=== PATIENT | female | born 1990 | race Caucasian/White ===

== ENCOUNTER 2017-05-20 20:26 | Emergency (ER) | payer OTHER ==
[~2017-05-20] VITALS: Ht 177.8 cm; Wt 79.3 kg
[2017-05-20] MEDS ORDERED: PREN27TA3 PO (20:34)
[2017-05-20 20:58] LABS: BASO % 0.1 % (0.0-1.0); EOS # 0.1 K/mm3 (0.0-0.50); EOS % 1.2 % (0.0-3.0); LARGE UNSTAINED CELL # 0.1 K/mm3 (0.0-0.4); LARGE UNSTAINED CELL % 1.4 % (0.0-4.0); LYMPH # 1.6 K/mm3 (1.5-6.5); LYMPH % 29.2 % (24.0-44.0); MEAN CORPUSCULAR HEMOGLOBIN 28.7 pg (27.0-33.0); MEAN CORPUSCULAR HGB CONC 33.3 g/dl (32.0-36.5); MEAN CORPUSCULAR VOLUME 86.2 fl (80.0-96.0); MONO # 0.3 K/mm3 (0.0-0.8); MONO % 6.1 % (0.0-5.0); NEUTROPHILS # 3.3 K/mm3 (1.8-7.7); NEUTROPHILS % 61.9 % (36.0-66.0); PLATELET COUNT, AUTOMATED 207 k/mm3 (150-450); RED CELL DISTRIBUTION WIDTH 12.9 % (11.5-14.5); WHITE BLOOD COUNT 5.3 K/mm3 (4.0-10.0)
[2017-05-20 21:16] LABS: CALCIUM OXALATE CRYSTALS SMALL
--- NOTE | 2017-05-20 21:40 | REPUSA ---
Clinical history: vaginal bleeding. Comparison: none. Findings: Real-time transabdominal and transvaginal ultrasound images of the pelvis were obtained. An anteverted uterus is noted, measuring 9.2 x 4.3 x 6.3 cm. The uterus demonstrates normal echotexture and echogenicity. The endometrial stripe measures 3 mm and is within normal limits. The right ovary measures 3.2 x 2.3 x 3.1 cm. There is a complex right ovarian cyst measuring 1.5 x 1.3 x 1.4 cm. The left ovary measures 3.5 x 2.3 x 2.6 cm. No adnexal masses are seen. Color Doppler flow is seen within both ovaries. There is no evidence of free fluid. Impression: 1. No evidence of it intrauterine at this time. Differential diagnosis includes early pregn litzy, missed , or ectopic . Follow-up with serial serum hCG levels is recommended. 2. Hemorrhagic right ovarian cyst.
[2017-05-20] MEDS ORDERED: metroNIDAZOLE (FLAGYL) 250 MG TAB As Ordered ONE (21:55)
[2017-05-20] MEDS ORDERED: FLAG500T PO (21:56)
[2017-05-20] MEDS ORDERED: metroNIDAZOLE (FLAGYL) 500 MG TAB PO ONE (22:00)
[2017-05-20] MEDS ORDERED: RHOGAM 300 MCG (1500 IU) INJ (J2790) IM SCH (22:00)
[2017-05-20 22:55] VITALS: BP 121/72
== END 2017-05-20 22:56 | disposition home or self-care (01) ==
LOC: M ED 20:26
DX: O20.0 Threatened abortion (principal); O23.599 Infection of other part of genital tract in pregnancy, unspecified trimester; O36.0191 Maternal care for anti-D [Rh] antibodies, unspecified trimester, fetus 1; O34.80 Maternal care for other abnormalities of pelvic organs, unspecified trimester; Z79.899 Other long term (current) drug therapy
CPT/HCPCS: 76801; 76817; 81001; 84702; 85025; 86850; 86900; 86901; 87210; 87491; 87591; 93976; 96372; 99284; J2790

== ENCOUNTER 2017-05-22 11:27 | Emergency (ER) | payer OTHER ==
[~2017-05-22] VITALS: Ht 177.8 cm; Wt 73.0 kg
[~2017-05-22 11:27] MED LIST: FLAG500T PO; PREN27TA3 PO
[2017-05-22 12:07] LABS: BASO % 0.3 % (0.0-1.0); EOS % 0.8 % (0.0-3.0); LARGE UNSTAINED CELL # 0.1 K/mm3 (0.0-0.4); LARGE UNSTAINED CELL % 1.6 % (0.0-4.0); LYMPH # 1.7 K/mm3 (1.5-6.5); LYMPH % 26.3 % (24.0-44.0); MEAN CORPUSCULAR HEMOGLOBIN 28.1 pg (27.0-33.0); MEAN CORPUSCULAR HGB CONC 32.5 g/dl (32.0-36.5); MEAN CORPUSCULAR VOLUME 86.4 fl (80.0-96.0); MONO # 0.3 K/mm3 (0.0-0.8); MONO % 5.4 % (0.0-5.0); NEUTROPHILS # 3.9 K/mm3 (1.8-7.7); NEUTROPHILS % 65.6 % (36.0-66.0); PLATELET COUNT, AUTOMATED 216 k/mm3 (150-450); RED CELL DISTRIBUTION WIDTH 12.9 % (11.5-14.5)
[2017-05-22 13:52] VITALS: BP 144/66
== END 2017-05-22 13:53 | disposition home or self-care (01) ==
LOC: M ED 11:27
DX: O03.4 Incomplete spontaneous abortion without complication (principal); D64.9 Anemia, unspecified; Z79.899 Other long term (current) drug therapy